=== PATIENT | male | born 1955 | race Asian ===

== ENCOUNTER 2020-10-31 08:16 | Inpatient (IN) | payer BC, SELFPAY ==
[2020-10-31] VITALS (7 sets, daily range): BP systolic 84–203; BP diastolic 11–117
[~2020-10-31] VITALS: Ht 170.2 cm; Wt 64.0 kg
[2020-10-31] MEDS ORDERED: fentaNYL citrate 1 MG in NACL 0.9% 80 ML IV PRN (08:35)
[2020-10-31] MEDS ORDERED: DOPPLER MC ONE (08:36)
--- NOTE | 2020-10-31 08:47 | NUR ---
C/O SOB, APNEA. FOUND BY THIS AM AROUND 0700, PT WAS AWAKE, SPEAKING BUT C/O SOB. CALLED EMS, UPON ARRIVAL PT PICKED UP FROM HOME, PT APPEARED TACHYPNIC AND ONLY ABLE TO SAY HIS NAME D/T SOB, EMS UNABLE TO OBTAIN A O2 SATURATION AND BP WAS 50'S SBP PER EMS. 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 ACLS PROTOCOL CONTINUED. COVID + 10/21/2020. PT HAS BEEN SICK WITH COVID SYMPTOMS X2 WEEKS. PT IS IN CRITICAL CONDITION AT THIS TIME WITH CRASH CART AT BEDSIDE. HX: HYPERLIPIDEMIA, DM BS [phone]
--- NOTE | 2020-10-31 08:58 | NUR ---
RT AT BEDSIDE, PT IS PULSELESS AT THIS TIME, CHEST COMPRESSIONS STARTED, REFER TO CODE BLUE SHEET. PT REMAINS IN CRITICAL CONDITION, CRASH CART AT BEDSIDE
[2020-10-31 09:01] LABS: BASOPHILS % (AUTO) 0.1 % (0.0-2.0); EOSINOPHILS % (AUTO) 0.1 % (0.0-4.0); HEMATOCRIT 30.8 % (36-52); HEMOGLOBIN 9.7 g/dL (12.0-18.0); LYMPHOCYTES % (AUTO) 4.3 % (20.5-51.1); MEAN CORPUSCULAR HEMOGLOBIN 35 pg (27-31); MEAN CORPUSCULAR HGB CONC 32 g/dL (33-37); MEAN CORPUSCULAR VOLUME 109.9 fL (80-94); MONOCYTES # (AUTO) 0.9 K/uL (0.8-1.0); NEUTROPHILS # (AUTO) 21.4 K/uL (1.8-7.7); NEUTROPHILS % (AUTO) 91.5 % (42.2-75.2); PLATELET COUNT (AUTO) 307 K/uL (140-450); RED BLOOD CELL COUNT(AUTO) 2.81 MIL/uL (4.20-6.10); RED CELL DISTRIBUTION WIDTH 15.2 % (11.6-13.7); WHITE BLOOD COUNT (AUTO) 23.4 K/uL (4.8-10.8)
[2020-10-31 09:17] LABS: PROTHROMBIN TIME 12.3 secs (10.8-13.4)
[2020-10-31 09:24] LABS: ALBUMIN 1.9 g/dL (3.4-5.0); ANION GAP 32.2 (8-16); CREATININE 3.9 mg/dL (0.6-1.3); POTASSIUM 4.2 mmol/L (3.5-5.1); TOTAL BILIRUBIN 0.5 mg/dL (0.0-1.0)
[2020-10-31 09:36] LABS: D-DIMER > 5000 ng/ml (0-400)
--- NOTE | 2020-10-31 09:44 | NUR ---
Brianne elias in [facility] - 10/31/20 at 0946 by [facility] LABS ENDORSED TO CRISTY MONROY
--- NOTE | 2020-10-31 09:46 | NUR ---
CRITICAL LABS ENDORSED TO CRISTY BALBUENA
[2020-10-31] MEDS ORDERED: NACL 0.9% 500 ML IV ONE (09:50)
[2020-10-31] MEDS ORDERED: NACL 0.9% 1,000 ML IV ONE (09:50)
[2020-10-31] MEDS ORDERED: NOREPINEPHRINE 4 MG in DEXTROSE 5% 250 ML IV ONE (10:15)
[2020-10-31] MEDS ORDERED: AZITHROMYCIN 500 MG in DEXTROSE 5% 250 ML IV SCH (10:32)
[2020-10-31 10:51] LABS: FIBRINOGEN 500 mg/dL (200-400)
--- NOTE | 2020-10-31 11:03 | NUR ---
PT BEGAN POSTURING AND EXPERIENCING JUMPING BODY MOVEMENTS, MD ORDERED TO TITRATE UP FENTANYL DRIP AT THIS TIME
[2020-10-31] MEDS ORDERED: cefTRIAXone 1,000 MG VIAL ONE (11:05)
--- NOTE | 2020-10-31 11:05 | NUR ---
MD AT BEDSIDE FOR CENTRAL LINE INSERTION. PT TOLERATED PROCEDURE WELL. FEMORAL CENTRAL LINE PLACED
[2020-10-31] MEDS ORDERED: guaiFENesin DM 200/20 MG-10 ML 10 ML UDC PO PRN (11:35)
[2020-10-31] MEDS ORDERED: HYDROcodone/APAP 7.5/325 MG 1 TAB PO PRN (11:35)
[2020-10-31] MEDS ORDERED: ONDANSETRON 4 MG/2 ML VIAL IM/IVP PRN (11:35)
[2020-10-31] MEDS ORDERED: ZOLPIDEM 5 MG TAB PO PRN (11:35)
[2020-10-31] MEDS ORDERED: ACETAMINOPHEN 325 MG TAB PO PRN (11:35)
[2020-10-31] MEDS ORDERED: DOCUSATE SODIUM 100 MG GELCAP PO PRN (11:35)
[2020-10-31] MEDS ORDERED: POTASSIUM CHLORIDE 10 MEQ TABER PO PRN (11:35)
[2020-10-31] MEDS ORDERED: ALBUTEROL SULFATE/IPRATROPIU 3 ML SOL IH PRN (11:40)
[2020-10-31] MEDS ORDERED: MORPHINE SULFATE 50 MG in NACL 0.9% 45 ML IV PRN (11:40)
[2020-10-31 11:41] LABS: RSV NEGATIVE (NEGATIVE)
[2020-10-31] MEDS ORDERED: AZITHROMYCIN 500 MG INJ VIAL IV ONE (11:49)
[2020-10-31] MEDS: NACL 0.9% 1,000 ML IV SCH ×2 (12:03→21:35)
[2020-10-31 12:31] LABS: BILIRUBIN,URINE NEGATIVE (NEGATIVE); BLOOD, URINE 3+ (NEGATIVE); COLOR,URINE YELLOW (YELLOW); LEUKOCYTE ESTERASE ,URINE NEGATIVE (NEGATIVE); NITRITE, URINE NEGATIVE (NEGATIVE); UGLUCOSE 1+ (NEGATIVE)
[2020-10-31 12:35] LABS: APPEARANCE,URINE SLIGHTLY HAZY (CLEAR)
[2020-10-31 12:38] LABS: FREE T4 (FREE THYROXINE) 1.17 ng/dL (0.76-1.46); MAGNESIUM 2.4 mg/dL (1.8-2.4); THYROID STIMULATING HORMONE 0.18 uIU/mL (0.34-3.74)
[2020-10-31 12:39] LABS: WBC,URINE 0-5 /HPF (0-5)
[2020-10-31] MEDS: PROPOFOL 1000 MG/100 ML PREMIX 100 ML IV PRN (12:46)
--- NOTE | 2020-10-31 12:47 | NUR ---
PROPOFOL DRIP STARTED AT THIS TIME D/T INCREASED INVOLUNTARY BODY JERKING MOTIONS
[2020-10-31 13:00] LABS: CHOL/HDL RATIO 6.9 (1-4.5); PHOSPHORUS 9.6 mg/dL (2.5-4.9)
[2020-10-31] MEDS: PIPERACILLIN/TAZOBACTAM 2.25 GM in DEXTROSE 5% 50 ML IV SCH ×2 (13:00→21:00)
--- NOTE | 2020-10-31 13:00 | NUR ---
RT CALLED TO BEDSIDE REGARDING PATIENT OXYGEN DESATURATION
--- NOTE | 2020-10-31 13:45 | NUR ---
PT REMAINS IN CRITICAL CONDITION, CRASH CART PLACED AT BEDSIDE.
[2020-10-31 13:52] LABS: BARBITURATE, URINE NEGATIVE ng/ml (NEG <=200); BENZODIAZEPINE, URINE NEGATIVE ng/mL (NEG <=200); CANNABINOID, URINE NEGATIVE ng/mL (NEG <=50); COCAINE, URINE NEGATIVE ng/mL (NEG <=300); OPIATE, URINE NEGATIVE ng/mL (NEG <=2000); PHENCYCLIDINE SCREEN,URINE NEGATIVE ng/mL (NEG <=25)
[2020-10-31] MEDS ORDERED: PIPERACILLIN/TAZOBACTAM 2.25 GM VIAL IV ONE ×2 (14:01→20:47)
--- NOTE | 2020-10-31 14:20 | NUR ---
Brianne elias in [facility] - 10/31/20 at 1431 by [facility] PT TAKEN TO BED 10.
[2020-10-31 14:25] LABS: C-REACTIVE PROTEIN QUANT 132.5 mg/dL (0.0-0.9)
[2020-10-31 14:30] LABS: BILIRUBIN,DIRECT 0.4 mg/dL (0.0-0.3); TOTAL BILIRUBIN 0.6 mg/dL (0.0-1.0)
[2020-10-31 14:31] LABS: ALBUMIN 1.7 g/dL (3.4-5.0)
--- NOTE | 2020-10-31 15:30 | NUR ---
RT CALLED TO BEDSIDE D/T DECLINING SP02
[2020-10-31] MEDS ORDERED: ATOR40TA PO (16:50)
[2020-10-31] MEDS ORDERED: METO-251 PO (16:50)
[2020-10-31] MEDS: NOREPINEPHRINE 8 MG in DEXTROSE 5% 250 ML IV PRN (17:27)
[2020-10-31 17:53] LABS: CKMB RELATIVE INDEX 0.6 (0.0-2.5); CREATINE KINASE MB 10.5 ng/mL (0-3.6)
--- NOTE | 2020-10-31 18:01 | NUR ---
PT IS CONTINUING TO HAVE INVOLUNTARY JERKING MOTIONS OF UPPER/LOWER LIMBS. CRASH CART REMAINS AT BEDSIDE. BED IN LOWEST POSITION, X2 SIDE RAILS RAISED.
--- NOTE | 2020-10-31 19:20 | NUR ---
RECEIVED REPORT FROM ESHA MUNIZ FOR CONTINUITY OF CARE. PT IS ETT TO VENT. SEDATED, RASS -3. FIO2 100% PEEP 5. IV SITE R FEMORAL, TLC INFUSING PROPOFOL AT 15 MCG/KG/MIN, FENTANYL AT 19 MCG/KG/MIN, LEVOPHED AT 12MCG/MIN. RHAND 20G, INTACT, PATENT, GOOD BLOOD RETURN, SALINE LOCKED. OGT IN PLACE. QUEZADA CATHETER IN PLACE. SKIN WARM AND DRY. SAFETY PRECAUTIONS IN PLACE. WILL CONTINUE TO MONITOR.
[2020-10-31] MEDS: fentaNYL citrate - 50mL vial 2.5 MG in NACL 0.9% 200 ML IV PRN (19:30)
--- NOTE | 2020-10-31 19:30 | NUR ---
HUNG NEW BAG FENTANYL. DRY WEIGHT 63.9 KG.
[2020-10-31] MEDS: ALBUTEROL SULFATE/IPRATROPIU 3 ML SOL IH SCH (19:35)
--- NOTE | 2020-10-31 21:00 | NUR ---
PT SEDATED RASS -3. ETT TO VENT. O2 SATURATION, 84%. RT AT BEDSIDE. WILL CONTINUE TO MONITOR.
--- NOTE | 2020-10-31 23:00 | NUR ---
PT ETT TO VENT. O2 SATURATION 85%. RT MADE AWARE. WILL CONTINUE TO MONITOR.
--- NOTE | 2020-11-01 01:35 | NUR ---
PT ETT TO VENT. O2 SATURATION 87%. WILL CONTINUE TO MONITOR.
[2020-11-01] MEDS: ALBUTEROL SULFATE/IPRATROPIU 3 ML SOL IH SCH ×3 (01:50→19:00)
--- NOTE | 2020-11-01 03:02 | NUR ---
PT ETT TO VENT. RESPIRATIONS EVEN AND UNLABORED. CHEST RISE IS SYMMETIRCAL. O2 SATURATION 87%. WILL CONTINUE TO MONITOR.
[2020-11-01 03:50] VITALS: BP 117/33
[2020-11-01] MEDS: NOREPINEPHRINE 8 MG in DEXTROSE 5% 250 ML IV PRN (04:16)
--- NOTE | 2020-11-01 04:16 | NUR ---
HUNG NEW BAG LEVOPHED. WILL CONTINUE TO MONITOR.
[2020-11-01] MEDS: PIPERACILLIN/TAZOBACTAM 2.25 GM in DEXTROSE 5% 50 ML IV SCH ×3 (05:00→21:00)
[2020-11-01 05:05] VITALS: BP 114/36
[2020-11-01] MEDS ORDERED: PIPERACILLIN/TAZOBACTAM 2.25 GM VIAL IV ONE ×2 (05:08→21:03)
--- NOTE | 2020-11-01 06:19 | NUR ---
CALLED PT'S FAMILY, RADHA. UPDATED ON PT STATUS, ALL QUESTIONS AND CONCERNS ANSWERED AT THIS TIME.
--- NOTE | 2020-11-01 06:30 | NUR ---
EMPTIED OUT QUEZADA CATHETER 50 ML OF URINE OUTPUT NOTED.
--- NOTE | 2020-11-01 07:09 | NUR ---
DR TRENT AT BEDSIDE EXAMINING PT
--- NOTE | 2020-11-01 07:19 | NUR ---
REPORT GIVEN TO EMILIE MUNIZ FOR CONTINUITY OF CARE
[2020-11-01] MEDS: NACL 0.9% 1,000 ML IV SCH ×2 (07:35→18:35)
[2020-11-01 07:38] LABS: HEMOGLOBIN 8.7 g/dL (12.0-18.0); MEAN CORPUSCULAR HEMOGLOBIN 34 pg (27-31); MEAN CORPUSCULAR HGB CONC 32 g/dL (33-37); PLATELET COUNT (AUTO) 261 K/uL (140-450); RED BLOOD CELL COUNT(AUTO) 2.55 MIL/uL (4.20-6.10); RED CELL DISTRIBUTION WIDTH 15.2 % (11.6-13.7)
--- NOTE | 2020-11-01 07:46 | NUR ---
RECEIVED REPORT FROM CRISTY DAVID AND [facility]
[2020-11-01 08:06] LABS: ALBUMIN 1.8 g/dL (3.4-5.0); CARBON DIOXIDE 22.4 mmol/L (21-32); POTASSIUM 5.4 mmol/L (3.5-5.1)
[2020-11-01 08:07] LABS: T4 (THYROXINE) 4.8 ug/dL (4.5-12.0)
[2020-11-01] MEDS ORDERED: HEPARIN PER PHARMACY MC PRN (08:30)
[2020-11-01] MEDS ORDERED: hePARIN / DEXT 5% PREMIX 250 ML IV SCH (08:50)
--- NOTE | 2020-11-01 08:56 | NUR ---
PATIENT HAS BEEN SCREENED AND CATEGORIZED HIGH NUTRITION RISK. PATIENT WILL BE SEEN WITHIN 1-2 DAYS OF ADMISSION. 11/01/20-11/02/[address]
[2020-11-01] MEDS ORDERED: PANTOPRAZOLE 40 MG TABEC PO SCH (09:00)
[2020-11-01 09:16] LABS: WHITE BLOOD COUNT (AUTO) 31.7 K/uL (4.8-10.8)
[2020-11-01 09:17] LABS: LYMPHOCYTES % (MANUAL) 6 % (20-46); MONOCYTES % (MANUAL) 5 % (5-12)
[2020-11-01] MEDS: DEXAMETHASONE 10 MG/ML VIAL IVP SCH (09:20)
[2020-11-01] MEDS: PANTOPRAZOLE 40 MG INJ VIAL IVP SCH (09:21)
--- NOTE | 2020-11-01 09:51 | NUR ---
PT RAAS -3 WITH VSS. O2 LEVELS STABLE. NO RESP CHANGES AT THIS TIME. LEVOPHED AND PROPOFOL RUNNING ACCORDING TO ORDERS.
[2020-11-01 10:03] VITALS: BP 127/48
[2020-11-01] MEDS ORDERED: ZIPRASIDONE MESYLATE 20 MG/ML VIAL IM ONE (10:06)
[2020-11-01 10:52] LABS: CREATININE 6.8 mg/dL (0.6-1.3)
--- NOTE | 2020-11-01 11:01 | NUR ---
PT SEDATED RASS -3. ETT TO VENT. O2 SATURATION, 92%. DRIPS RUNNING ACCORDING TO MD ORDERS.
[2020-11-01 12:25] VITALS: BP 130/54
--- NOTE | 2020-11-01 13:18 | NUR ---
PT SEDATED AT RASS -3. ETT TO VENT. O2 SATURATION, 92%. IV DRIPS RUNNING PER MD ORDERS
--- NOTE | 2020-11-01 13:24 | NUR ---
HUNG NEW PROPOFOL BOTTLE
--- NOTE | 2020-11-01 13:35 | NUR ---
PT CALLED FOR UPDATE.
--- NOTE | 2020-11-01 15:34 | NUR ---
PT SEDATED AT RAAS -3. PT ETT TO VENT. RESPIRATIONS EVEN AND UNLABORED. CHEST RISE IS SYMMETIRCAL. O2 SATURATION 93%.
--- NOTE | 2020-11-01 15:57 | NUR ---
11/01/20 RD INITIAL ASSESSMENT COMPLETED PLEASE REFER TO NUTRITION ASSESSMENT UNDER CARE ACTIVITY FOR ESTIMATED NUTRITIONAL NEEDS. 1. IF MEDICALLY APPROPRIATE RECOMMEND GLUCERNA 1.2 @ 60 ML/HR -THIS WILL PROVIDE 1728 KCAL AND 86 GM OF PROTEIN, MEETING 100% OF ESTIMATED NUTRIENT NEEDS. 2. FLUSH PER MD. 3. RD TO FOLLOW-UP 2-3 DAYS, HIGH RISK [address]YS[address] LOTT, RD
--- NOTE | 2020-11-01 17:12 | NUR ---
PT APTT WAS 42.3. STARTED HEPARIN DRIP PER PROTOCOL. INITIAL BOLUS 3800U AND 8000U/HR FOR IV DRIP.
--- NOTE | 2020-11-01 18:57 | NUR ---
PT SEDATED TO RASS -3. ETT TO VENT. O2 SATURATION, 90%. BED RAILS UP AND BED IN LOWEST POSITION.
--- NOTE | 2020-11-01 19:15 | NUR ---
REPORT RECEIVED FROM EMILIE MUNIZ FOR CONTINUITY OF CARE
[2020-11-01] MEDS ORDERED: NOREPINEPHRINE 4 MG/4 ML VIAL IV ONE (19:19)
[2020-11-01] MEDS ORDERED: BUMETANIDE 1 MG/4 ML VIAL IV SCH (20:35)
[2020-11-01] MEDS ORDERED: SODIUM BICARBONATE 8.4% 50 MEQ in DEXTROSE 5% 1,000 ML IV SCH (20:35)
[2020-11-01] MEDS ORDERED: ALBUMIN HUMAN 25% 100 ML IV SCH (20:35)
[2020-11-01] MEDS ORDERED: SODIUM ZIRCONIUM CYCLOSILICATE 10 GM POWD.PACK GT/PO SCH (20:45)
--- NOTE | 2020-11-01 20:45 | NUR ---
Brianne elias in ED - 11/01/20 at 2053 by [email or web address] RECEIVED CALL FROM LAB, [facility] ORDER IS A 5-7 DAYS WAIT TIME.
[2020-11-01 21:46] LABS: PROTHROMBIN TIME 12.2 secs (10.8-13.4)
--- NOTE | 2020-11-01 22:00 | NUR ---
PTT 58.8. NO CHANGE IN HEPARIN DRIP NEEDED. WILL CONTINUE TO MONITOR.
--- NOTE | 2020-11-02 00:30 | NUR ---
PT SEDATED, RASS -3. RESPIRATIONS EVEN AND UNLABORED. CHEST RISE IS SYMMETRICAL. VSS. WILL CONTINUE TO MONITOR.
[2020-11-02] MEDS: ALBUTEROL SULFATE/IPRATROPIU 3 ML SOL IH SCH ×4 (01:00→19:00)
[2020-11-02] MEDS: fentaNYL citrate - 50mL vial 2.5 MG in NACL 0.9% 200 ML IV PRN (01:20)
--- NOTE | 2020-11-02 01:24 | NUR ---
PTT 62.6, NO CHANGE IN HEPARIN DRIP NEEDED PER PROTOCOL. WILL CONTINUE TO MONITOR.
[2020-11-02] MEDS: PROPOFOL 1000 MG/100 ML PREMIX 100 ML IV PRN ×2 (03:11→17:27)
--- NOTE | 2020-11-02 03:55 | NUR ---
PT SEDATED, RASS -3. RESPIRATIONS EVEN AND UNLABORED. CHEST RISE IS SYMMETRICAL. VSS. WILL CONTINUE TO MONITOR.
--- NOTE | 2020-11-02 05:10 | NUR ---
PT SEDATED, RASS -3. RESPIRATIONS EVEN AND UNLABORED. CHEST RISE IS SYMMETRICAL. VSS. WILL CONTINUE TO MONITOR.
[2020-11-02] MEDS ORDERED: PIPERACILLIN/TAZOBACTAM 2.25 GM VIAL IV ONE ×3 (05:11→20:47)
[2020-11-02] MEDS: PIPERACILLIN/TAZOBACTAM 2.25 GM in DEXTROSE 5% 50 ML IV SCH ×3 (05:15→20:55)
[2020-11-02] MEDS: NACL 0.9% 1,000 ML IV SCH ×3 (05:16→23:35)
--- NOTE | 2020-11-02 06:44 | NUR ---
DR TRENT IN TO SEE PT. UPDATED ON PT STATUS.
--- NOTE | 2020-11-02 07:21 | NUR ---
REPORT GIVEN TO MADHAVI MUNIZ FOR CONTINUITY OF CARE
--- NOTE | 2020-11-02 07:23 | NUR ---
Report received from CRISTY Villafana. Transfer of care at this time.
--- NOTE | 2020-11-02 07:46 | NUR ---
Pt repositioned, VSS, will continue to monitor.
--- NOTE | 2020-11-02 08:02 | NUR ---
PAGED DR. KELVIN TRENT [phone] TO REVIEW [facility] SAMPLE REPORT CALL BACK NUMBER [phone]
--- NOTE | 2020-11-02 08:04 | NUR ---
CALL BACK FROM DR. KELVIN TRENT REVIEWED [facility]PL REPORT NO NEW ORDERS
[2020-11-02 08:24] LABS: BASOPHILS % (AUTO) 0.1 % (0.0-2.0); HEMATOCRIT 24.9 % (36-52); HEMOGLOBIN 8.1 g/dL (12.0-18.0); LYMPHOCYTES # (AUTO) 0.8 K/uL (2.0-11.5); LYMPHOCYTES % (AUTO) 2.7 % (20.5-51.1); MEAN CORPUSCULAR HEMOGLOBIN 34 pg (27-31); MEAN CORPUSCULAR HGB CONC 33 g/dL (33-37); MEAN CORPUSCULAR VOLUME 105.1 fL (80-94); MONOCYTES # (AUTO) 1.1 K/uL (0.8-1.0); MONOCYTES % (AUTO) 3.8 % (1.7-9.3); NEUTROPHILS # (AUTO) 27.2 K/uL (1.8-7.7); NEUTROPHILS % (AUTO) 93.4 % (42.2-75.2); PLATELET COUNT (AUTO) 230 K/uL (140-450); RED BLOOD CELL COUNT(AUTO) 2.37 MIL/uL (4.20-6.10); RED CELL DISTRIBUTION WIDTH 14.8 % (11.6-13.7)
[2020-11-02 08:25] LABS: WHITE BLOOD COUNT (AUTO) 29.1 K/uL (4.8-10.8)
[2020-11-02 08:57] LABS: ANION GAP 24.4 (8-16); CARBON DIOXIDE 17.3 mmol/L (21-32); POTASSIUM 5.7 mmol/L (3.5-5.1); TOTAL BILIRUBIN 1.9 mg/dL (0.0-1.0)
[2020-11-02 09:43] LABS: CREATININE 9.5 mg/dL (0.6-1.3)
[2020-11-02] MEDS: DEXAMETHASONE 10 MG/ML VIAL IVP SCH (09:51)
[2020-11-02] MEDS: PANTOPRAZOLE 40 MG INJ VIAL IVP SCH (09:52)
[2020-11-02 10:35] VITALS: BP 159/68
[2020-11-02 11:56] LABS: PROTHROMBIN TIME 12.2 secs (10.8-13.4)
--- NOTE | 2020-11-02 12:20 | NUR ---
PTT 72.5. HEPARIN DRIP DECREASED FROM 800 UNITS TO 600 UNITS. WILL CONTINUE TO MONITOR.
[2020-11-02 13:07] LABS: PROTHROMBIN TIME 12.1 secs (10.8-13.4)
--- NOTE | 2020-11-02 13:11 | NUR ---
PTT 75.0--critical value received from lab.
--- NOTE | 2020-11-02 14:07 | NUR ---
Spoke with Chantale Sol, pt for updates [phone].
--- NOTE | 2020-11-02 14:24 | NUR ---
PROVIDED TUBE FEEDING WITH GRAVITY FEEDING BAG TO RN.
[2020-11-02 14:30] VITALS: BP 135/67
--- NOTE | 2020-11-02 14:48 | NUR ---
Dr. Reece, Ced pay station attendant at pt bedside for evaluation and pt updates.
--- NOTE | 2020-11-02 16:18 | NUR ---
Pt repositioned, visible equal rise and fall of chest, VSS, will continue to monitor.
[2020-11-02 19:10] VITALS: BP 132/61
--- NOTE | 2020-11-02 19:22 | NUR ---
Gave report to CRISTY Anaya, transfered care at this time.
--- NOTE | 2020-11-02 19:50 | NUR ---
pt remains RASS -3. removed from soft wrist restraints.
--- NOTE | 2020-11-02 20:12 | NUR ---
CHG cleaning provided. Jenny care provided. pt sheets and gown replaced. residual of 100cc dark malodorous contents recieved from orogastric tube.
[2020-11-02 21:30] VITALS: BP 127/52
--- NOTE | 2020-11-02 21:50 | NUR ---
pt continuous to be off restraint with sedation of RASS -3. pt does not appear to be in distress. no other needs at this time.
[2020-11-02 23:10] VITALS: BP 124/32
--- NOTE | 2020-11-02 23:27 | NUR ---
HOB to 35 degrees. sedated to RASS -3. no distress noted at this time.
[2020-11-03] MEDS: ALBUTEROL SULFATE/IPRATROPIU 3 ML SOL IH SCH (01:00)
[2020-11-03 01:09] LABS: PROTHROMBIN TIME 11.4 secs (10.8-13.4)
--- NOTE | 2020-11-03 02:00 | NUR ---
observed BP trending down. levophed 8mg initiated.
[2020-11-03] MEDS: PIPERACILLIN/TAZOBACTAM 2.25 GM in DEXTROSE 5% 50 ML IV SCH (05:10)
--- NOTE | 2020-11-03 05:23 | NUR ---
NEW PROPOFOL BOTTLE HUNG AT THIS TIME.
[2020-11-03 07:30] VITALS: BP 120/30
--- NOTE | 2020-11-03 07:44 | NUR ---
HAND OFF REPORT RECEIVED FROM LEVI MUNIZ. ETT TO VENT, LAYING IN SUPINE POSITION. NO ACUTE DISTRESS NOTED AT THIS TIME. RASS -3. QUEZADA HANGING TO GRAVITY. ALL NEEDS MET AT THIS TIME.
--- NOTE | 2020-11-03 08:14 | NUR ---
DR TRENT AT BEDSIDE, MADE AWARE REGARDING LOW BLOOD PRESSURE, NO NEW ORDER PLACED AT THIS TIME
--- NOTE | 2020-11-03 08:30 | NUR ---
DR SIMPSON AT BEDSIDE, MADE AWARE OF PATIENTS UNSTABLE VITAL SIGNS, NO NEW ORDERS PLACED AT THIS TIME
--- NOTE | 2020-11-03 08:48 | NUR ---
PT'S BP IS 68/23, HR 61. DR. SILVER NOTIFED.
--- NOTE | 2020-11-03 08:48 | NUR ---
CALLED DR. SIMPSON TO NOTIFY OF PATIENTS DECLINING STATUS
--- NOTE | 2020-11-03 08:49 | NUR ---
ENTERED PATIENTS ROOM D/T DECLINING HEART RATE SEEN ON MONITOR. PT PULSELESS AT THIS TIME, CODE BLUE INITIATED, CRASH CART PULLED TO BEDSIDE, REFER TO CODE BLUE SHEET.
--- NOTE | 2020-11-03 08:49 | NUR ---
PT BECOMES ASYSTOLE. DR. SILVER CALLED FOR JACY DYER.
[2020-11-03] MEDS ORDERED: DOPPLER MC ONE (08:53)
--- NOTE | 2020-11-03 08:59 | NUR ---
CALLED BY DR. SILVER. Addendum: 11/03/20 at 0907 by [facility] ALL FLUIDS STOPED.
--- NOTE | 2020-11-03 08:59 | NUR ---
TONora PRONOUNCED BY MD SILVER
[2020-11-03] MEDS ORDERED: ATORVASTATIN 20 MG TAB PO SCH (09:00)
[2020-11-03 09:15] LABS: HEMATOCRIT 24.2 % (36-52); HEMOGLOBIN 7.7 g/dL (12.0-18.0); MEAN CORPUSCULAR HEMOGLOBIN 35 pg (27-31); MEAN CORPUSCULAR HGB CONC 32 g/dL (33-37); MEAN CORPUSCULAR VOLUME 109.3 fL (80-94); PLATELET COUNT (AUTO) 217 K/uL (140-450); RED BLOOD CELL COUNT(AUTO) 2.22 MIL/uL (4.20-6.10); RED CELL DISTRIBUTION WIDTH 15.7 % (11.6-13.7)
[2020-11-03 09:38] LABS: WHITE BLOOD COUNT (AUTO) 25.9 K/uL (4.8-10.8)
[2020-11-03 09:57] LABS: ALBUMIN 1.7 g/dL (3.4-5.0); ANION GAP 25.4 (8-16); CARBON DIOXIDE 17.9 mmol/L (21-32); TOTAL BILIRUBIN 1.9 mg/dL (0.0-1.0)
[2020-11-03 10:39] LABS: POTASSIUM 8.3 mmol/L (3.5-5.1)
[2020-11-03 10:40] LABS: CREATININE 11.8 mg/dL (0.6-1.3)
[2020-11-03 10:41] LABS: BASOPHILS % (MANUAL) 0 % (0-2); EOSINOPHILS % (MANUAL) 0 % (0-4); LYMPHOCYTES % (MANUAL) 1 % (20-46); MONOCYTES % (MANUAL) 5 % (5-12)
--- NOTE | 2020-11-03 10:54 | NUR ---
CALLED [employer] AND SPOKE TO CLARE/ CASE # [id number]. PER CLARE PT IS NOT A ORGAN DONER CANDIDATE.
--- NOTE | 2020-11-03 11:01 | NUR ---
CALLED MOTOR COACH OPERATOR AND SPOKE TO LIT. MOTOR COACH OPERATOR WILL CALLED BACK FOR BODY RELEASE.
--- NOTE | 2020-11-03 12:55 | NUR ---
SPOKE WITH PICKER OPERATOR DOTTIE FOR GIVING PT'S REPORT. CASE # [id number].
[2020-11-03 15:54] VITALS: BP 77/20
--- NOTE | 2020-11-03 16:00 | NUR ---
PT HAS BEEN PLACED IN THE [place].
== END 2020-11-03 08:59 | DRG 208 ==
LOC: MED 08:16 → MTU 13:28
PROVIDERS: ADMIT Family Medicine; ATTEND Family Medicine
PROC: 5A1945Z Respiratory Ventilation, 24-96 Consecutive Hours (ICD-10-PCS; principal; 2020-10-31)
PROC: 0BH17EZ Insertion of Endotracheal Airway into Trachea, Via Natural or Artificial Opening (ICD-10-PCS; 2020-10-31)
PROC: 06HY33Z Insertion of Infusion Device into Lower Vein, Percutaneous Approach (ICD-10-PCS; 2020-10-31)
PROC: B54BZZA Ultrasonography of Right Lower Extremity Veins, Guidance (ICD-10-PCS; 2020-10-31)
PROC: 5A12012 Performance of Cardiac Output, Single, Manual (ICD-10-PCS; 2020-11-03)
DX: U07.1 COVID-19 (principal); A41.9 Sepsis, unspecified organism; E43 Unspecified severe protein-calorie malnutrition; J15.9 Unspecified bacterial pneumonia; J96.01 Acute respiratory failure with hypoxia; N17.0 Acute kidney failure with tubular necrosis; R65.21 Severe sepsis with septic shock; I21.4 Non-ST elevation (NSTEMI) myocardial infarction; J12.89 Other viral pneumonia; K72.00 Acute and subacute hepatic failure without coma; E87.1 Hypo-osmolality and hyponatremia; I16.1 Hypertensive emergency; M62.82 Rhabdomyolysis; E11.9 Type 2 diabetes mellitus without complications; I46.9 Cardiac arrest, cause unspecified; E83.39 Other disorders of phosphorus metabolism; E87.5 Hyperkalemia; Z68.22 Body mass index [BMI] 22.0-22.9, adult
CPT/HCPCS: 31500; 36415; 36556; 36600; 71045; 80053; 80076; 80305; 81001; 82150; 82550; 82553; 82728; 82803; 83036; 83605; 83615; 83690; 83735; 83880; 84100; 84436; 84439; 84443; 84479; 84484; 85025; 85379; 85384; 85610; 85730; 86140; 87040; 87086; 87420; 87804; 93005; 94002; 96365; 99291; C9113; J0456; J0696; J1100; J1644; J2543; J2704; J3010; J3486; J3490; J7030; J7060; P9046; U0003